=== PATIENT | female | born 1955 | race African-American/Black ===

== ENCOUNTER → 2017-12-26 19:51 | Outpatient (CLI) | payer OTHER | END | disposition home or self-care (01) | LOC: D.MAMMO 14:45 | DX: Z12.31 Encounter for screening mammogram for malignant neoplasm of breast (principal) ==

== ENCOUNTER 2018-02-01 08:00 | Outpatient (CLI) | payer OTHER | END 2018-02-01 08:01 | disposition home or self-care (01) | LOC: D.MAMMO 08:00 | DX: R92.8 Other abnormal and inconclusive findings on diagnostic imaging of breast (principal) ==

== ENCOUNTER → 2018-04-12 08:55 | Outpatient (CLI) | payer OTHER | END | disposition home or self-care (01) | LOC: D.US 08:55 | DX: E04.1 Nontoxic single thyroid nodule (principal) ==

== ENCOUNTER 2018-10-16 13:30 | Outpatient (CLI) | payer OTHER | END 2018-10-16 14:00 | disposition home or self-care (01) | LOC: D.MAMMO 13:30 | PROVIDERS: ATTEND Nurse Practitioner | DX: R92.8 Other abnormal and inconclusive findings on diagnostic imaging of breast (principal) ==